=== PATIENT | male | born 1970 | race Caucasian/White ===

== ENCOUNTER 2022-02-20 20:27 | Inpatient (IN) | payer OTHER ==
[2022-02-20 21:03] LABS: #Basophils 0.1 10x3/uL (0.0-0.2); #Eosinphils 0.2 10x3/uL (0.0-0.5); #Monocytes 0.6 10x3/uL (0.0-1.1); #Neutrophils 5.4 10x3/uL (1.5-8.4); %Basophils 0.9 % (0.0-2.0); %Eosinophils 2.6 % (0.0-6.0); %Monocytes 6.5 % (0.0-10.0); %Neutrophils 58.9 % (40.0-75.0); Hemoglobin 14.1 g/dL (13.5-17.5); Mean Corpuscular HGB CONC 33.3 g/dL (32.0-36.0); Mean Corpuscular Hemoglobin 28.6 pg (27.0-33.0); Mean Platelet Volume 10.6 fl (7.4-10.4); Platelet Count 270 10x3/uL (150-450); RBC Distribution Width 13.6 % (11.5-14.5); Red Blood Cell (RBC) Count 4.93 10x6/uL (4.32-5.72); White Blood Cell (WBC) Count 9.2 10x3/uL (3.5-10.5)
[2022-02-20] MEDS ORDERED: Labetalol HCl 100 MG/20 ML VIAL ONE (21:04)
[2022-02-20 21:42] LABS: ALT (SGPT) 171 U/L (8-55); AST (SGOT) 167 U/L (5-34); Albumin 4.3 g/dL (3.5-5.0); Alkaline Phosphatase 95 U/L (40-110); Anion Gap 15 mmol/L (10-20); BUN (Urea Nitrogen) 13 mg/dL (8.9-20.6); Bilirubin, Total 0.6 mg/dL (0.2-1.2); Calc. Creatinine Clearance 0 mL/min (70-130); Calcium 9.6 mg/dL (7.8-10.44); Carbon Dioxide 28 mmol/L (22-29); Chloride 100 mmol/L (98-107); Estimated GFR 109; Globulin 3.7 g/dL (2.4-3.5); Glucose 109 mg/dL (70-105); Potassium 4.4 mmol/L (3.5-5.1); Sodium 139 mmol/L (136-145)
[2022-02-20] MEDS ORDERED: Aspirin Chewable 81 MG TAB ONE (21:47)
[2022-02-20] MEDS ORDERED: Nitroglycerin 2% Ointment 1 INCH/1 GM Packet ONE (21:48)
[2022-02-20] MEDS ORDERED: Guaifenesin DM 100-10/5 ML UDCUP PO PRN (23:37)
[2022-02-20] MEDS ORDERED: Calcium Carbonate 500 MG ChewTAB PO PRN (23:37)
[2022-02-20] MEDS ORDERED: Senokot S 8.6-50 MG TAB PO PRN (23:37)
[2022-02-20] MEDS ORDERED: Ondansetron PF 4 MG/2 ML Vial IVP PRN (23:37)
[2022-02-20] MEDS ORDERED: niCARdipine 25 MG in Sodium Chloride 0.9% 250 ML 250 ML IVPB SCH (23:45)
[2022-02-20 23:50] LABS: SARS-CoV-2 NAA Rapid Test Not Detected (NotDetected)
[2022-02-21] MEDS ORDERED: niCARdipine 25 MG/10 ML VIAL ONE (00:46)
[2022-02-21] MEDS ORDERED: Nitroglycerin 0.4 MG TAB (25 Tab Bottle) SL PRN (00:53)
[2022-02-21] MEDS ORDERED: hydrALAZINE 20 MG/ML VIAL SLOW IVP PRN (01:26)
[2022-02-21 02:43] LABS: Actual Bicarbonate (HCO3v) 31 mEq/L (22-28); Base Excess 4.2 mEq/L (-2.0 to +3.0); Calcium, Ionized (venous) 1.09 mmol/L (1.16-1.32); Chloride (VBG) 98 mmol/L (98-106); Critical Notified By: CP.PH; Hemoglobin (Hb) 14.3 g/dL (13.1-17.2); Potassium (VBG) 4.28 mmol/L (3.70-5.30); Puncture Site Other Site; RapidComm Collect By LAB.YY; Sodium 127.9 mmol/L (133-146); pH (venous) 7.37 (7.32-7.43)
[2022-02-21 02:52] LABS: ALT (SGPT) 159 U/L (8-55); AST (SGOT) 162 U/L (5-34); Albumin 4.1 g/dL (3.5-5.0); Alkaline Phosphatase 98 U/L (40-110); Anion Gap 17 mmol/L (10-20); BUN (Urea Nitrogen) 16 mg/dL (8.9-20.6); Bilirubin, Total 0.6 mg/dL (0.2-1.2); Calc. Creatinine Clearance 0 mL/min (70-130); Calcium 9.3 mg/dL (7.8-10.44); Carbon Dioxide 28 mmol/L (22-29); Chloride 99 mmol/L (98-107); Cholesterol 281 mg/dl (< 200 Desired); Estimated GFR 96; Globulin 3.5 g/dL (2.4-3.5); Glucose 153 mg/dL (70-105); HDL Cholesterol 28 mg/dL (>60 Neg Risk); LDL Cholesterol, Calculated 203 mg/dL; Potassium 4.5 mmol/L (3.5-5.1); Protein, Total 7.6 g/dL (6.0-8.3); Sodium 139 mmol/L (136-145); Triglycerides 252 mg/dL (Less than 150)
[2022-02-21 04:28] VITALS: BMI 53.1
[2022-02-21] MEDS: Mometasone/Formoterol 60 PUFF AER INH SCH ×2 (08:30→20:30)
[2022-02-21] MEDS: Losartan Potassium 50 MG TAB PO SCH (08:41)
[2022-02-21] MEDS: Aspirin 81 mg Enteric Coated Tablet PO SCH (08:41)
[2022-02-21] MEDS: Carvedilol 6.25 MG TAB PO SCH ×2 (08:41→18:04)
[2022-02-21] MEDS: Enoxaparin Sodium 40 MG/0.4 ML SYRINGE SC SCH (08:41)
[2022-02-21] MEDS: Hydrochlorothiazide 25 MG TAB PO SCH (08:42)
[2022-02-21] MEDS: Topiramate 100 MG TAB PO SCH (09:06)
[2022-02-21] MEDS: Acetaminophen 325 MG TAB PO PRN ×2 (14:36→20:49)
[2022-02-21] MEDS: Atorvastatin Calcium 40 MG TAB PO SCH (20:49)
[2022-02-21] MEDS: Montelukast Sodium 10 mg Tablet PO SCH (20:49)
[2022-02-22 05:37] LABS: ALT (SGPT) 143 U/L (8-55); AST (SGOT) 117 U/L (5-34); Alkaline Phosphatase 95 U/L (40-110); Anion Gap 10 mmol/L (10-20); BUN (Urea Nitrogen) 17 mg/dL (8.9-20.6); Bilirubin, Total 0.4 mg/dL (0.2-1.2); Calc. Creatinine Clearance 277 mL/min (70-130); Calcium 9.6 mg/dL (7.8-10.44); Carbon Dioxide 33 mmol/L (22-29); Chloride 101 mmol/L (98-107); Estimated GFR 106; Globulin 3.6 g/dL (2.4-3.5); Glucose 139 mg/dL (70-105); Potassium 4.3 mmol/L (3.5-5.1); Protein, Total 7.6 g/dL (6.0-8.3); Sodium 140 mmol/L (136-145)
[2022-02-22] MEDS: Mometasone/Formoterol 60 PUFF AER INH SCH (07:45)
[2022-02-22] MEDS: Topiramate 100 MG TAB PO SCH (10:04)
[2022-02-22] MEDS: Aspirin 81 mg Enteric Coated Tablet PO SCH (10:04)
[2022-02-22] MEDS: Enoxaparin Sodium 40 MG/0.4 ML SYRINGE SC SCH (10:04)
[2022-02-22] MEDS: Losartan Potassium 50 MG TAB PO SCH (10:04)
[2022-02-22] MEDS: Hydrochlorothiazide 25 MG TAB PO SCH (10:05)
[2022-02-22] MEDS: Carvedilol 6.25 MG TAB PO SCH ×2 (10:05→16:56)
[2022-02-22] MEDS ORDERED: NIFEdipine XL 90 MG TAB PO SCH (11:30)
[2022-02-22] MEDS: Acetaminophen 325 MG TAB PO PRN ×2 (13:06→17:02)
[2022-02-22] MEDS: Montelukast Sodium 10 mg Tablet PO SCH (20:26)
[2022-02-22] MEDS: Ibuprofen 400 MG TAB PO PRN (20:26)
[2022-02-22] MEDS: hydrALAZINE 25 MG TAB PO SCH (20:26)
[2022-02-22] MEDS: Atorvastatin Calcium 40 MG TAB PO SCH (20:27)
[2022-02-23] MEDS: Mometasone/Formoterol 60 PUFF AER INH SCH ×2 (08:05→12:08)
[2022-02-23] MEDS: NIFEdipine XL 90 MG TAB PO SCH (09:49)
[2022-02-23] MEDS: Carvedilol 6.25 MG TAB PO SCH ×2 (09:49→16:56)
[2022-02-23] MEDS: hydrALAZINE 25 MG TAB PO SCH ×2 (09:49→20:48)
[2022-02-23] MEDS: Enoxaparin Sodium 40 MG/0.4 ML SYRINGE SC SCH (09:49)
[2022-02-23] MEDS: Hydrochlorothiazide 25 MG TAB PO SCH (09:49)
[2022-02-23] MEDS: Aspirin 81 mg Enteric Coated Tablet PO SCH (09:50)
[2022-02-23] MEDS: Losartan Potassium 50 MG TAB PO SCH (09:50)
[2022-02-23] MEDS: Topiramate 100 MG TAB PO SCH (09:58)
[2022-02-23] MEDS: Ibuprofen 400 MG TAB PO PRN (19:51)
[2022-02-23] MEDS: Atorvastatin Calcium 40 MG TAB PO SCH (20:41)
[2022-02-23] MEDS: Montelukast Sodium 10 mg Tablet PO SCH (20:41)
[2022-02-24] MEDS: Mometasone/Formoterol 60 PUFF AER INH SCH ×2 (07:30→10:14)
[2022-02-24] MEDS: NIFEdipine XL 90 MG TAB PO SCH (09:49)
[2022-02-24] MEDS: hydrALAZINE 25 MG TAB PO SCH (09:49)
[2022-02-24] MEDS: Losartan Potassium 50 MG TAB PO SCH (09:50)
[2022-02-24] MEDS: Carvedilol 6.25 MG TAB PO SCH ×2 (09:50→17:45)
[2022-02-24] MEDS: Hydrochlorothiazide 25 MG TAB PO SCH (09:50)
[2022-02-24] MEDS: Aspirin 81 mg Enteric Coated Tablet PO SCH (09:50)
[2022-02-24] MEDS: Enoxaparin Sodium 40 MG/0.4 ML SYRINGE SC SCH (09:51)
[2022-02-24] MEDS: Topiramate 100 MG TAB PO SCH (09:52)
[2022-02-24 19:51] VITALS: BP 141/80; TEMP 97.6
== END 2022-02-24 19:50 | disposition home or self-care (01) | DRG 305 ==
LOC: CSHERS 20:27 → CSHTELE 23:16 → UNDOADMIN 02-21 02:35
PROVIDERS: ADMIT Student in an Organized Health Care Education/Training Program; ATTEND Internal Medicine
PROC: 5A09357 Assistance with Respiratory Ventilation, Less than 24 Consecutive Hours, Continuous Positive Airway Pressure (ICD-10-PCS; principal; 2022-02-24)
DX: I16.1 Hypertensive emergency (principal); Z68.43 Body mass index [BMI] 50.0-59.9, adult; E66.2 Morbid (severe) obesity with alveolar hypoventilation; I50.42 Chronic combined systolic (congestive) and diastolic (congestive) heart failure; J96.10 Chronic respiratory failure, unspecified whether with hypoxia or hypercapnia; I16.0 Hypertensive urgency; E78.5 Hyperlipidemia, unspecified; E78.00 Pure hypercholesterolemia, unspecified; I11.0 Hypertensive heart disease with heart failure; J44.9 Chronic obstructive pulmonary disease, unspecified; F41.9 Anxiety disorder, unspecified; I25.118 Atherosclerotic heart disease of native coronary artery with other forms of angina pectoris; G47.33 Obstructive sleep apnea (adult) (pediatric); M79.7 Fibromyalgia; K76.0 Fatty (change of) liver, not elsewhere classified; Z20.822 Contact with and (suspected) exposure to COVID-19; I25.2 Old myocardial infarction; Z98.890 Other specified postprocedural states
CPT/HCPCS: 36415; 71045; 76705; 80053; 80061; 82805; 83880; 84484; 85025; 93005; 93010; 93306; 93970; 94664; 94760; 96374; 96375; J0360; J1650; U0002